=== PATIENT | female | born 1980 | race Caucasian/White ===

== ENCOUNTER 2019-04-03 11:17 | Emergency (ER) | payer OTHER ==
[2019-04-03 11:42] VITALS: PULSE 71; RESP 16
[2019-04-03 11:43] VITALS: BMI 27.4
[2019-04-03] MEDS ORDERED: Sodium Chloride 0.9% 1,000 ML IV STA (12:49)
[2019-04-03 13:22] LABS: VENOUS BLOOD GAS BASE EXCESS 4.5 mmol/L (0.0-2.0); VENOUS BLOOD GAS PCO2 49 mmHg (40-60); VENOUS BLOOD GAS PO2 25 mm/Hg (30-55)
[2019-04-03 13:22] LABS: SQUAMOUS EPITHIAL 16 /hpf (0-5); URINE BACTERIA MOD (<OCC); URINE BILIRUBIN NEGATIVE (NEGATIVE); URINE BLOOD NEGATIVE (NEGATIVE); URINE CLARITY CLOUDY (Clear); URINE COLOR YELLOW (YELLOW); URINE GLUCOSE (UA) NEG (NEGATIVE); URINE LEUKOCYTE ESTERASE MOD Leu/uL (Negative); URINE PROTEIN 30 mg/dL (NEGATIVE); URINE UROBILINOGEN 0.2-1.0 mg/dL (0.2-1.0)
[2019-04-03 13:27] LABS: BASO % 0.3 % (0.0-2.0); EOS # 0.2 K/uL (0.0-0.7); EOS % 1.5 % (0.0-4.0); HEMOGLOBIN 12.9 g/dL (12.0-16.0); LYMPH # 2.6 K/uL (1.0-4.3); LYMPH % 24.3 % (20.0-40.0); MEAN CELL VOLUME 87.5 fl (81.0-99.0); MEAN CORPUSCULAR HEMOGLOBIN 29.1 pg (27.0-31.0); MEAN CORPUSCULAR HGB CONC 33.3 g/dL (33.0-37.0); MEAN PLATELET VOLUME 7.5 fl (7.2-11.7); MONO # 0.7 K/uL (0.0-0.8); MONO % 6.7 % (0.0-10.0); NEUT # 7.3 K/uL (1.8-7.0); NEUT % 67.2 % (50.0-75.0); NRBC % 0.1 % (0.0-0.0); RBC 4.43 Mil/uL (3.80-5.20); RED CELL DISTRIBUTION WIDTH 14.1 % (11.5-14.5)
[2019-04-03 13:32] LABS: WHITE BLOOD COUNT 10.8 K/uL (4.8-10.8)
[2019-04-03 13:33] LABS: ALB/GLOB RATIO 1.5 (1.0-2.1); ALBUMIN 4.5 g/dL (3.5-5.0); ALT/SGPT 18 U/L (9-52); AST/SGOT 15 U/L (14-36); BLOOD UREA NITROGEN 16 mg/dl (7-17); CALCIUM 9.6 mg/dL (8.4-10.2); GFR NON-AFRICAN AMERICAN > 60
--- NOTE | 2019-04-03 14:35 | ED PDOC ---
HPI: Back Time Seen by Provider: 04/03/19 12:49 Chief Complaint (Nursing): Back Pain Chief Complaint (Provider): Lower back pain History Per: Patient History/Exam Limitations: no limitations Onset/Duration Of Symptoms: Days Current Symptoms Are (Timing): Still Present Quality Of Discomfort: "Pain" Additional History Per: Patient Additional Complaint(s): 38yo female, otherwise well, comes to ER reporting left lower back pain which radiates to her abdomen. Patient states she has had an episode of pyelonephritis in the past and this is similar. She reports a tactile fever, dysuria and an episode of vomiting. She denies any history of renal stones. No additional complaints. Past Medical History Reviewed: Historical Data, Nursing Documentation, Vital Signs Vital Signs: Last Vital Signs Temp 98.4 F 04/03/19 11:40 Pulse 71 04/03/19 11:40 Resp 16 04/03/19 11:40 BP 108/69 04/03/19 11:40 Pulse Ox 95 04/03/19 11:40 Primary Care Provider: FAMILY PROVIDER,NO - Medical History PMH: No Chronic Diseases, Diabetes (gestational) Denies: Chronic Kidney Disease - Surgical History Surgical History: No Surg Hx - Family History Family History: States: Unknown Family Hx - Immunization History Hx Tetanus Toxoid Vaccination: No Hx Influenza Vaccination: No Hx Pneumococcal Vaccination: No - Home Medications Home Medications: Ambulatory Orders Medication Instructions Recorded Cefdinir [Omnicef] 300 mg PO BID #20 cap 12/02/18 Cephalexin [Keflex] 500 mg PO Q8 #30 capsule 04/03/19 - Allergies Allergies/Adverse Reactions: Allergies Allergy/AdvReac Type Severity Reaction Status Date / Time banana Allergy RASH Verified 04/03/19 11:32 coffee (Coffea arabica) Allergy RASH Verified 04/03/19 11:32 shrimp Allergy RASH Verified 04/03/19 11:32 Review of Systems ROS Statement: Except As Marked, All Systems Reviewed And Found Negative Constitutional: Positive for: Fever Gastrointestinal: Positive for: Vomiting (x 1), Abdominal Pain Genitourinary Female: Positive for: Dysuria Musculoskeletal: Positive for: Back Pain Physical Exam - Reviewed Nursing Documentation Reviewed: Yes Vital Signs Reviewed: Yes - Physical Exam Appears: Positive for: Non-toxic, No Acute Distress Head Exam: Positive for: ATRAUMATIC Skin: Positive for: Normal Color Eye Exam: Positive for: Normal appearance Neck: Positive for: Supple Cardiovascular/Chest: Positive for: Regular Rate, Rhythm. Negative for: Tachycardia Respiratory: Positive for: Normal Breath Sounds. Negative for: Respiratory D istress Gastrointestinal/Abdominal: Positive for: Soft, Tenderness (suprapubic) Back: Positive for: L CVA Tenderness Extremity: Positive for: Normal ROM Neurological/Psych: Positive for: Awake, Alert, Normal Tone - Laboratory Results Result Diagrams: 04/03/19 13:05 04/03/19 13:05 Lab Results: pO2 25 mm/Hg (30-55) L 04/03/19 13:15 VBG pH 7.40 (7.32-7.43) 04/03/19 13:15 VBG pCO2 49 mmHg (40-60) 04/03/19 13:15 VBG HCO3 27.0 mmol/L 04/03/19 13:15 VBG Total CO2 31.9 mmol/L (22-28) H 04/03/19 13:15 VBG O2 Sat (Calc) 55.2 % (40-65) 04/03/19 13:15 VBG Base Excess 4.5 mmol/L (0.0-2.0) H 04/03/19 13:15 VBG Potassium 3.8 mmol/L (3.6-5.2) 04/03/19 13:15 Sodium 138.0 mmol/L (132-148) 04/03/19 13:15 Chloride 104.0 mmol/L (98-107) 04/03/19 13:15 Glucose 97 mg/dL (65-105) 04/03/19 13:15 Lactate 1.3 mmol/L (0.7-2.1) 04/03/19 13:15 FiO2 21.0 % 04/03/19 13:15 Total Bilirubin 0.4 mg/dl (0.2-1.3) 04/03/19 13:05 AST 15 U/L (14-36) 04/03/19 13:05 ALT 18 U/L (9-52) 04/03/19 13:05 Alkaline Phosphatase 57 U/L (38-126) 04/03/19 13:05 Total Protein 7.5 G/DL (6.3-8.2) 04/03/19 13:05 Albumin 4.5 g/dL (3.5-5.0) 04/03/19 13:05 Globulin 3.0 gm/dL (2.2-3.9) 04/03/19 13:05 Albumin/Globulin Ratio 1.5 (1.0-2.1) 04/03/19 13:05 Urine Color Yellow (YELLOW) 04/03/19 13:05 Urine Clarity Cloudy (Clear) 04/03/19 13:05 Urine pH 5.0 (5.0-8.0) 04/03/19 13:05 Ur Specific Guy 1.026 (1.003-1.030) 04/03/19 13:05 Urine Protein 30 mg/dL (NEGATIVE) 04/03/19 13:05 Urine Glucose (UA) Neg mg/dL (NEGATIVE) 04/03/19 13:05 Urine Ketones Trace mg/dL (NEGATIVE) 04/03/19 13:05 Urine Blood Negative (NEGATIVE) 04/03/19 13:05 Urine Nitrate Negative (NEGATIVE) 04/03/19 13:05 Urine Bilirubin Negative (NEGATIVE) 04/03/19 13:05 Urine Urobilinogen 0.2-1.0 mg/dL (0.2-1.0) 04/03/19 13:05 Ur Leukocyte Esterase Mod Lucas/uL (Negative) 04/03/19 13:05 Urine RBC (Auto) 7 /hpf (0-3) H 04/03/19 13:05 Urine Microscopic WBC 133 /hpf (0-5) H 04/03/19 13:05 Ur Squamous Epith Cells 16 /hpf (0-5) H 04/03/19 13:05 Urine Bacteria Mod (<OCC) H 04/03/19 13:05 - ECG O2 Sat by Pulse Oximetry: 95 (RA) Pulse Ox Interpretation: Normal Medical Decision Making Medical Decision Making: Clinical signs of pyelonephritis Labs ordered IVF and IV Anitbiotics initiated 1418 Labs reviewed, no clinically significant abnormalities. Patient is stable for discharge home, informed to take medications as prescribed and to follow up in 2-3 days. Return precautions given. Scribe Attestation: Documented by Dee Dee Dewey acting as a scribe for Franica Roberts MD. Provider Scribe Attestation: All medical record entries made by the Scribe were at my direction and personally dictated by me. I have reviewed the chart and agree that the record accurately reflects my personal performance of the history, physical exam, m edical decision making, and the department course for this patient. I have also personally directed, reviewed, and agree with the discharge instructions and disposition. Disposition - Clinical Impression Clinical Impression: Pyelonephritis - Disposition Disposition: Routine/Home Disposition Time: 14:18 Condition: IMPROVED Additional Instructions: Follow up with PMD in one week. Return to the emergency department if symptoms worsen or if new symptoms develop. Take antibiotics four times per day and take motrin as needed for pain. Prescriptions: Cephalexin [Keflex] 500 mg PO Q8 #30 capsule Instructions: Urinary Tract Infection, Adult (DC), Kidney Infection (DC) Forms: [employer] ([place]) Print Language: SWISS
[2019-04-03 15:14] VITALS: BP 110/72; TEMP 98.1
[2019-04-05 14:43] VITALS: O2SAT 95
== END 2019-04-03 15:14 | disposition home or self-care (01) ==
LOC: MERGE 11:17 → H.ER 11:17
DX: N12 Tubulo-interstitial nephritis, not specified as acute or chronic (principal)
CPT/HCPCS: 80053; 81003; 81025; 82803; 85025; 96374; 96375; 99284; J2270; J2405; J7030